=== PATIENT | female | born 1965 | race Caucasian/White ===

== ENCOUNTER 2016-09-01 10:54 | Emergency (ER) | payer OTHER | END 2016-09-01 11:55 | disposition home or self-care (01) | LOC: ER 10:54 | DX: R60.9 Edema, unspecified (principal); E11.40 Type 2 diabetes mellitus with diabetic neuropathy, unspecified; I10 Essential (primary) hypertension; Z88.0 Allergy status to penicillin; Z79.84 Long term (current) use of oral hypoglycemic drugs; Z79.899 Other long term (current) drug therapy | CPT/HCPCS: 99283 ==